=== PATIENT | female | born 1970 | race Caucasian/White ===

== ENCOUNTER 2020-06-12 06:14 | Day surgery (SDC) | payer MEDICAID ==
[~2020-06-12] VITALS: Ht 154.9 cm; Wt 75.0 kg
[~2020-06-12 06:14] MED LIST: SODIUM CHLORIDE 0.9% 1,000 ML ONE
[2020-06-12] MEDS ORDERED: LIDOCAINE 4% 50 ML SOLUTION TP ONE (06:15)
[2020-06-12] MEDS ORDERED: LIDOCAINE 2% 30 ML JELLY TP ONE (06:15)
[2020-06-12] MEDS ORDERED: BENZOCAINE 20% 50 MCG/SPRAY 57 GM TP ONE (06:15)
[2020-06-12] MEDS ORDERED: ALBUTEROL SULFATE 2.5 MG/0.5 ML NEB SOLUTION NEB ONE (06:15)
[2020-06-12] MEDS ORDERED: SODIUM CHLORIDE 0.9% 1,000 ML IV ONE (06:30)
[2020-06-12 06:36] LABS: COVID AG,FIA SOURCE NASOPHARYNGEAL
[2020-06-12] MEDS ORDERED: FentaNYL CITRATE PF 100 MCG/2 ML VIAL ONE (07:42)
[2020-06-12] MEDS ORDERED: MIDAZOLAM HCL 5 MG/ML VIAL ONE (07:42)
[2020-06-12] MEDS ORDERED: MethylPREDNISolone SOD SUCC 125 MG/2 ML VIAL IVP ONE (09:00)
[2020-06-12] MEDS ORDERED: MethylPREDNISolone SOD SUCC 125 MG/2 ML VIAL ONE (09:15)
[2020-06-12] MEDS ORDERED: OXYGEN THERAPY IH SCH (20:00)
== END 2020-06-12 10:15 | disposition home or self-care (01) ==
LOC: SURGERY 06:14
PROVIDERS: ATTEND Internal Medicine Critical Care Medicine
DX: J38.4 Edema of larynx (principal); B37.0 Candidal stomatitis
CPT/HCPCS: 31623; 31624; 71045; 87015; 87070; 87101; 87205; 87206; 87220; 87426; 88108; 88184; 88185; 88312; C9803; J2250; J2930; J3010; J7030; J7613; Z7610